=== PATIENT | male | born 2000 | race Caucasian/White ===

== ENCOUNTER 2020-07-14 22:16 | Observation (INO) | payer BC ==
[~2020-07-14] VITALS: Ht 175.3 cm; Wt 101.4 kg
[~2020-07-14 22:16] MED LIST: CETI5 PO; CODACEE120 PO; LORA10ER PO; PROCODE120 PO
[2020-07-14 23:26] LABS: BASOPHILS ABSOLUTE AUTO 0.06 K/mm3 (0.00-0.23); BASOPHILS PERCENT AUTO 1 % (0-2); EOSINOPHILS ABSOLUTE AUTO 0.25 K/mm3 (0.00-0.68); EOSINOPHILS PERCENT AUTO 2 % (0-6); Hematocrit 44.3 % (37.0-53.0); Hemoglobin 14.4 g/dL (13.5-17.5); IMMATURE GRAN ABSOLUTE AUTO 0.02 K/mm3 (0.00-0.10); IMMATURE GRAN PERCENT AUTO 0 % (0-1); LYMPHOCYTES ABSOLUTE AUTO 2.18 K/mm3 (0.84-5.20); LYMPHOCYTES PERCENT AUTO 20 % (21-46); MONOCYTES ABSOLUTE AUTO 1.07 K/mm3 (0.16-1.47); MONOCYTES PERCENT AUTO 10 % (4-13); Mean Corpuscular HGB 28.1 pg (26.0-34.0); Mean Corpuscular HGB Conc 32.5 g/dL (31.5-36.5); Mean Corpuscular Volume 87 fL (80-100); NEUTROPHILS ABSOLUTE AUTO 7.46 K/mm3 (1.96-9.15); NEUTROPHILS PERCENT AUTO 68 % (41-73); Platelet Count 278 K/mm3 (150-400); RDW Coefficient Variation 13.2 % (11.7-14.2); RDW Standard Deviation 42.5 fL (35.1-46.3); Red Blood Cell Count 5.12 M/mm3 (4.30-5.90); White Blood Cell Count 11.04 K/mm3 (4.00-11.30)
[2020-07-14 23:44] LABS: Alanine Aminotransfer (ALT/SGP 37 U/L (12-78); Albumin/Globulin Ratio 1.2 (0.8-1.8); Alk Phos 83 U/L (50-136); Anion Gap 6 mmol/L (6-16); Aspartate Aminotrans (AST/SGOT 15 U/L (12-37); Bilirubin, Total 0.3 mg/dL (0.1-1.0); Blood Urea Nitrogen 13 mg/dL (8-24); Bun/Creatinine Ratio 14.1 (12.0-20.0); CO2, Blood 27 mmol/L (21-32); Chloride, Blood 107 mmol/L (98-108); Creatinine, Blood 0.92 mg/dL (0.60-1.20); Globulin, Blood 3.3 g/dL (2.2-4.0); Glomerular Filtration Rate >60 (60-); Glucose, Blood 92 mg/dL (70-99); Potassium, Blood 3.7 mmol/L (3.5-5.5); Sodium, Blood 140 mmol/L (136-145); Total Protein, Blood 7.3 g/dL (6.4-8.2)
--- NOTE | 2020-07-15 02:11 | NUR ---
ADMIT TO SURGICAL UNIT PT ARRIVED TO UNIT FROM ED VIA [facility] AT 0110 TODAY. IS ABLE TO STAND/PIVOT SELF INTO BED. IS A/OX4 WITH VSS. DENIES SOB, CP, OR N/V. HAS 20 GAUGE IV'S IN BILATERAL HANDS. IVF AND ABX INFUSING PER ORDERS. ORIENTATION TO ROOM PROVIDED. IS NPO. PT CURRENTLY RESTING IN BED WHILE USING MOBILE DEVICE AND HAS CALL LIGHT IN REACH. WILL CONT TO MONITOR FOR CHANGES IN PATIENT'S CONDITION.
--- NOTE | 2020-07-15 06:26 | NUR ---
SHIFT SUMMARY A/OX4 WITH VSS. IND IN ROOM WITH SBA R/T PAIN MEDS AND LINES. NO ACUTE CHANGES SINCE ARRIVAL TO UNIT. MEDICATED FOR PAIN X1 WITH 4MG IV MORPHINE, PT REPORTS RELIEF. ABX/IVF INFUSED PER ORDERS. NPO SINCE MIDNIGHT. PT APPEARS TO BE RESTING COMFORTABLY IN BED WITH CALL LIGHT IN REACH AT THIS TIME. PLAN FOR POSSIBLE SURGERY TODAY. WILL CONT TO MONITOR AND GIVE REPORT TO ONCOMING RN.
--- NOTE | 2020-07-15 07:20 | NUR ---
pt req pain meds pain 8/10 morphine 4 mg ivp given pt stated it helps bring the pain down to 2/10 pt given stuff for prn mouth care
--- NOTE | 2020-07-15 08:41 | NUR ---
PATIENT NOTE: I ASSUMED CARE AT THIS TIME FOR THIS PATIENT. JUST LEFT FOR DAY SURGERY AT 0845 TODAY.
[2020-07-15] MEDS ORDERED: CIPR500 PO (11:45)
[2020-07-15] MEDS ORDERED: OXYC5 PO (11:46)
--- NOTE | 2020-07-15 13:39 | NUR ---
DISCHARGE SUMMARY: WENT THROUGH THE DISCHARGE INSTRUCTIONS WITH THE PATIENT AND HIS MOTHER. PATIENT AND MOTHER VERBALIZED UNDERSTANDING OF INSTRUCTIONS. PATIENT HAS GATHERED HIS BELONGINGS. BOTH IV'S WERE D/C'D. VITALS WERE STABLE, HE IS ON ROOM AIR, AND WAS ABLE TO VOID. HIM AND HIS MOM WILL WALK DOWN TO HER CAR.
--- NOTE | 2020-07-16 12:42 | NUR ---
07/16/20 1242 Lanny Georges VERIFICATIONS: EDIT CHART.
== END 2020-07-15 13:40 | disposition home or self-care (01) ==
LOC: ER 22:16 → SURS 22:17
PROVIDERS: Emergency Medicine; ADMIT Surgery
PROC: 0H99XZX Drainage of Perineum Skin, External Approach, Diagnostic (ICD-10-PCS; principal; 2020-07-15 09:15)
DX: K61.1 Rectal abscess (principal); F17.220 Nicotine dependence, chewing tobacco, uncomplicated; Z20.828 Contact with and (suspected) exposure to other viral communicable diseases; Z88.0 Allergy status to penicillin
CPT/HCPCS: 36415; 72193; 80053; 83690; 85025; 87070; 87075; 87077; 87186; 87205; 96374-59; 96375; 96375-59; 96376; 99284-25; G0378; J0744; J1100; J1885; J2250; J2270; J2405; J2704; J3010; J7120; Q9967; U0002

== ENCOUNTER → 2021-06-04 | Outpatient (CLI) | payer BC ==
[~2021-06-04] MED LIST changes: +CIPR500 PO; +OXYC5 PO
[2021-06-04 19:56] LABS: BASOPHILS ABSOLUTE AUTO 0.07 K/mm3 (0.00-0.23); BASOPHILS PERCENT AUTO 1 % (0-2); EOSINOPHILS ABSOLUTE AUTO 0.32 K/mm3 (0.00-0.68); EOSINOPHILS PERCENT AUTO 4 % (0-6); Hematocrit 46.2 % (37.0-53.0); Hemoglobin 15.2 g/dL (13.5-17.5); IMMATURE GRAN ABSOLUTE AUTO 0.02 K/mm3 (0.00-0.10); IMMATURE GRAN PERCENT AUTO 0 % (0-1); LYMPHOCYTES ABSOLUTE AUTO 2.43 K/mm3 (0.84-5.20); LYMPHOCYTES PERCENT AUTO 29 % (21-46); MONOCYTES ABSOLUTE AUTO 0.57 K/mm3 (0.16-1.47); MONOCYTES PERCENT AUTO 7 % (4-13); Mean Corpuscular HGB 28.6 pg (26.0-34.0); Mean Corpuscular HGB Conc 32.9 g/dL (31.5-36.5); Mean Corpuscular Volume 87 fL (80-100); Mean Platelet Volume 11.5 fL (9.1-12.4); NEUTROPHILS ABSOLUTE AUTO 5.11 K/mm3 (1.96-9.15); NEUTROPHILS PERCENT AUTO 60 % (41-73); Platelet Count 320 K/mm3 (150-400); RDW Coefficient Variation 13.3 % (11.7-14.2); RDW Standard Deviation 42.2 fL (35.1-46.3); Red Blood Cell Count 5.31 M/mm3 (4.30-5.90); White Blood Cell Count 8.52 K/mm3 (4.00-11.30)
[2021-06-04 20:07] LABS: Alanine Aminotransfer (ALT/SGP 49 U/L (12-78); Albumin, Blood 4.2 g/dL (3.4-5.0); Albumin/Globulin Ratio 1.3 (0.8-1.8); Alk Phos 81 U/L (50-136); Anion Gap 3 mmol/L (6-16); Aspartate Aminotrans (AST/SGOT 21 U/L (12-37); Bilirubin, Total 0.2 mg/dL (0.1-1.0); Blood Urea Nitrogen 15 mg/dL (8-24); Bun/Creatinine Ratio 18.8 (12.0-20.0); CO2, Blood 27 mmol/L (21-32); Calcium, Blood 8.9 mg/dL (8.5-10.1); Chloride, Blood 107 mmol/L (98-108); Globulin, Blood 3.3 g/dL (2.2-4.0); Glomerular Filtration Rate >60 (60-); Glucose, Blood 103 mg/dL (70-99); Sodium, Blood 137 mmol/L (136-145); Total Protein, Blood 7.5 g/dL (6.4-8.2)
== END | disposition home or self-care (01) ==
LOC: LAB 16:20 → LAB SHORT 16:20
PROVIDERS: Nurse Practitioner Family
DX: R11.10 Vomiting, unspecified (principal)
CPT/HCPCS: 80053; 84443; 85025

== ENCOUNTER 2023-06-05 09:23 | Emergency (ER) | payer BC ==
[~2023-06-05] VITALS: Ht 175.3 cm; Wt 102.1 kg
[2023-06-05 10:00] VITALS: BP 126/87
[2023-06-05] MEDS ORDERED: ZYRTEC10 M4 PO (10:02)
[2023-06-06] MEDS ORDERED: ALBU90OI INH (11:21)
== END 2023-06-05 12:53 | disposition home or self-care (01) ==
LOC: ER 09:23
DX: S62.334A Displaced fracture of neck of fourth metacarpal bone, right hand, initial encounter for closed fracture (principal); S62.336A Displaced fracture of neck of fifth metacarpal bone, right hand, initial encounter for closed fracture; F17.220 Nicotine dependence, chewing tobacco, uncomplicated; Z88.0 Allergy status to penicillin; W19.XXXA Unspecified fall, initial encounter
CPT/HCPCS: 26605; 73120; 73130; 99283-25

== ENCOUNTER 2023-06-09 10:59 | Day surgery (SDC) | payer BC ==
[2023-06-09] VITALS (9 sets, daily range): BP systolic 119–139; BP diastolic 48–98
[~2023-06-09] VITALS: Ht 175.3 cm; Wt 102.1 kg
[~2023-06-09 10:59] MED LIST changes: +ALBU90OI INH; +ZYRTEC10 M4 PO
--- NOTE | 2023-06-09 12:21 | NUR ---
Ambulatory in Day Surgery. History, Chart, Medications and Allergies reviewed before start of procedure. Lungs clear T/O to Auscultation. Patient confirms NPO status and agrees with scheduled surgery. Pre-Op teaching done. Pt verbalizes understanding. Patient States Post-Procedure ride home has been arranged.
--- NOTE | 2023-06-09 15:49 | NUR ---
REPORT RECIEVED. PT SITTING UP TOLERING PO FLUIDS AND FOOD. MOM AT BEDSIDE. PT REPORTS DISCOMFORT BUT DECLINES PAIN MEDICATION AT THIS TIME. VSS ON ROOM AIR
--- NOTE | 2023-06-09 16:07 | NUR ---
PT REPORTS INCREASING PAIN. ORDERS REVIEWED FOR MEDICATION. VSS
--- NOTE | 2023-06-09 16:36 | NUR ---
PT REPORTS PAIN RELIEF AND NO NAUSEA. STATES HE IS COMFORTABLE TO GO HOME Patient up to Ambulate independently. Gait steady. Discharge instructions reviewed with patient AND MOTHER Patient verbalizes understanding. Copy given to patient to take home. SLING AND ICE PACK PROVIDED Discharged via wheelchair to private car for ride home.
== END 2023-06-09 16:39 | disposition home or self-care (01) ==
LOC: ORSCMMR 10:59
PROVIDERS: Orthopaedic Surgery
PROC: 0PSP04Z Reposition Right Metacarpal with Internal Fixation Device, Open Approach (ICD-10-PCS; principal; 2023-06-09 13:30)
DX: S62.324A Displaced fracture of shaft of fourth metacarpal bone, right hand, initial encounter for closed fracture (principal); S62.339A Displaced fracture of neck of unspecified metacarpal bone, initial encounter for closed fracture; Z72.0 Tobacco use
CPT/HCPCS: A9270; C1713; J0690; J1100; J1885; J2405; J2704; J3010; J7120